=== PATIENT | male | born 1950 | race Caucasian/White ===

== ENCOUNTER 2017-12-03 07:15 | Day surgery (SDC) | payer OTHER ==
[2017-12-03] MEDS ORDERED: LACTATED RINGERS 1,000 ML IV ONE ×2 (07:34→11:22)
[2017-12-03] MEDS ORDERED: ceFAZolin 2 GM/50 ML 2 GM/50 ML BAG IV ONE (08:03)
[2017-12-03] MEDS ORDERED: BUPIVACAINE 0.5% PF 30 ML VIAL INFIL ONE ×3 (08:35→08:58)
[2017-12-03] MEDS ORDERED: PROPOFOL 200 MG/20 ML VIAL IVP ONE (10:00)
[2017-12-03] MEDS ORDERED: LIDOCAINE-MPF 2% 5 ML VIAL IM ONE (10:00)
[2017-12-03] MEDS ORDERED: KETOROLAC 30 MG/ML VIAL IVP ONE (10:00)
--- NOTE | 2017-12-03 10:25 | OPERATIVE REPORT ---
Operative Report - General Procedure Date: 12/03/17 Planned Procedure: RIGHT inguinal herniorrhaphy Pre-Op Diagnosis: RIGHT inguinal hernia Procedure Performed: RIGHT indirect inguinal herniorrhaphy and excision RIGHT cord lipoma Post Op Diagnosis: Indirect RIGHT inguinal herniorrhaphy and RIGHT cord lipoma - Procedure Note Primary Surgeon: Santosh Franco MD Anesthesia Provider: Santosh Fernandes MD Anesthesia Technique: Local (40 mL 1/2% marcaine), MAC IV Fluids (mL): 600 Estimated Blood Loss (mL): 10 Complications: None. - Other Other Information/Narrative: Operative After verbal and written informed consent was obtained detailing the risks of infection, bleeding with all of its risks including transfusion, common bile duct injury, and the patient was brought to the operative suite and placed in the supine position on the operating room table. Monitoring devices were applied along with TEDs and pneumatic compressive stockings. Care was taken to avoid pressure points. Prophylactic antibiotics were given. An adequate level of general endotracheal anesthesia was established by Dr. Santosh Fernandes. The abdomen was then prepped with ChloraPrep and draped in a sterile fashion. A "time in" then confirmed that the patient was identified with 3 identifiers (name, birthdate and medical record number), the history and physical was in the chart, the signed consent confirming the procedure was in the chart, the site was marked, verified and the brennan could be seen, the patient was in the correct position, the aforementioned prophylactic measures were in place or given, we had the correct personel and equipment to complete the procedure and that anesthesia, surgery and nursing were given an opportunity to express any concerns. A 5 cm standard right inguinal incision was made using a 15 blade scalpel. Dissection was then carried down through Elisa's fascia maintaining hemostasis using Bovie electrocautery. Small crossing veins were cauterized again using Bovie electrocautery. Once the external oblique was identified, it was incised in the length of its fibers with a 15 blade scalpel. Metzenbaum scissors were then used to extend the incision in both directions opening up the external oblique down to the external ring. Next, the external oblique was grasped with Kellys on both sides. The cord, cord structures as well as hernia sac were freed up circumferentially at the level of the pubic tubercle and a Whatley drain was placed around it. Next, the hernia sac was identified in the anteromedial portion of the hernia sac was stripped down and grasped with 2 hemostats. Using traction and countertraction as well as some blunt dissection the sac was dissected back to the internal ring. The sac was opened and noted to be a sliding inguinal hernia. The attachment of the fat to the hernia sac was dissected using Bovie electrocautery. This is done in a bloodless manner and the fat was returned back into the abdomen. The sac was thensuture ligated at its base using a 2-0 Vicryl and transected. The stump was cauterized using Bovie electrocautery. A small to moderate sized cord lipoma was noted, dissected back to the internal ring, and transected using Bovie electrocautery. Unfortunately, this bled and had to be suture ligated with a 3-0 Vicryl suture ligature. A large Bard PerFix plug and patch system (Lot #[id number], Reference#[id number], Expiration date 2022-03-24) was then used to complete the hernia repair. The plug was inserted into the internal ring and secured to the ring using simple 2- 0 PDS sutures. The enlay patch was placed and sutured to the pubic tubercle medially, the conjoined tendon superiorly and the shelving edge of Pouparts ligament inferiorly using interrupted 2-0 PDS sutures. The slit and hole in the enlay patch were aligned to allow the cord structures through thus creating a "new" internal ring. Attention was directed throughout the case to preserve the ilioinguinal nerve. This was left above the repair but below the closure of the external oblique. The external oblique was closed using a running 3-0 Vicryl suture thus receating the inguinal canal and external ring. This level, the subcutaneous level, and the subcuticular level were then injected with a total of 40 mL of 0.5% Marcaine. Elisa's fascia was closed using interrupted 4 -0 Monocryl and the skin was approximated using a running 4-0 Monocryl subcuticular stitch. The surgical count of instruments, needles and sponges was reported as correct twice. Mastisol, Steri-Strips and sterile surgical dressings were applied. The patient was then awakened from anesthesia, and having tolerated the procedure well, was transported to the recovery room. No complications were encountered. A "time out" confirmed the operation performed, the fluids given, the estimated blood loss and anesthesia, surgery and nursing were given an opportunity to express any concerns. Dragon disclaimer: This document was created in part using voice recognition technology. Because of the inherent limitations of the system ([employer] D[employer] user manual states that the licensee understands that speech recognition is a statistical process and that recognition errors are inherent in the process), occasional same sounding word substitutions and grammatical errors do occur and persist despite proofreading. Please read this document for context.
[2017-12-03] MEDS ORDERED: ACETAMINOPHEN 1,000 MG/100 ML 100 ML IV ONE (10:27)
[2017-12-03] MEDS: HYDROmorphone 1 MG/ML SYRINGE ONE ×3 (10:38→10:50)
[2017-12-03] MEDS ORDERED: oxyCOD/ACETAMIN 5 MG/325 MG TABLET PO ONE (11:56)
[2017-12-03 12:12] VITALS: BP 141/85
== END 2017-12-03 07:16 | disposition home or self-care (01) ==
LOC: SDS 07:15
PROVIDERS: ATTEND Surgery
PROC: 0VBF0ZZ Excision of Right Spermatic Cord, Open Approach (ICD-10-PCS; 2017-12-03)
PROC: 0YU50JZ Supplement Right Inguinal Region with Synthetic Substitute, Open Approach (ICD-10-PCS; principal; 2017-12-03 08:30)
DX: K40.90 Unilateral inguinal hernia, without obstruction or gangrene, not specified as recurrent (principal); D17.6 Benign lipomatous neoplasm of spermatic cord; G47.30 Sleep apnea, unspecified; I10 Essential (primary) hypertension; I67.1 Cerebral aneurysm, nonruptured
CPT/HCPCS: 49525; 55520; A9270; C1781; J0131; J0690; J1170; J7120

== ENCOUNTER 2017-12-09 10:07 | Outpatient (CLI) | payer OTHER | END 2017-12-09 10:08 | disposition home or self-care (01) | LOC: SC 10:07 | PROVIDERS: ATTEND Nurse Practitioner Family | DX: G47.33 Obstructive sleep apnea (adult) (pediatric) (principal) | CPT/HCPCS: 99212; 99214 ==

== ENCOUNTER 2018-12-09 13:44 | Outpatient (CLI) | payer OTHER | END 2018-12-09 13:45 | disposition home or self-care (01) | LOC: SC 13:44 | PROVIDERS: ATTEND Nurse Practitioner Family | DX: G47.33 Obstructive sleep apnea (adult) (pediatric) (principal); G47.00 Insomnia, unspecified | CPT/HCPCS: 99212; 99214 ==

== ENCOUNTER 2020-03-17 16:08 | Outpatient (CLI) | payer OTHER ==
--- NOTE | 2020-03-17 15:48 | SLEEP CARE CONSULTATION ---
Information from patient questionnaire entered by Fiona Titus. I have reviewed and concur with the information entered by Fiona Titus. This document represents the service I personally performed and the decisions made by me, Maria C Rodrigez, RN, MSN, WR[employer]PER [employer]TER. History of Present Illness Service Date and Time: 03/17/2020 1530 Previous diagnosis: Mild, Obstructive Sleep Apnea-Hypopnea Syndrome AHI: 11.6 (in 2016) Reason for follow up: annual (last seen 2019) Equipment type: CPAP Equipment obtained from: [employer] (getting supplies as needed) Mask style: Nasal Backup mask available: Yes (old mask ) Last cushion change: a month ago Prior sleep studies: Yes Year and Where: 2016 - [facility] Type of Sleep Study: Polysomnography CPAP Compliance Data - Data Reviewed with Patient Average duration of nightly device use: 7.75 Compliance rate %: 100 (180 days) Current pressure setting (cmH2O): 6 Humidity settin Heated hose settin Average residual AHI: 3.2 Average large leak: 0 Subjective Patient concerns: denies: aerophagia, mask discomfort, air blowing in eyes, mask leak noise, condensation in mask/hose, nasal congestion, dry mouth, nose, throat, epistaxis, other Observed to snore while using device: Yes (when supine) Current pressure setting perceived as: comfortable On therapy, patient: reports: sleeping better, awakening more refreshed, being more awake and alert during the day, more rested overall. denies: drowsiness while driving Initial [place] Sleepiness Scale score: 18 (in 2016) Allergies and Home Medications Home medication list reviewed: No (no changes) Review of Systems Review of systems same as previous: Yes Physical Exam Height: 5 ft 8 in Weight: 175 lb (home weight ) Body Mass Index: 26.6 BMI Classification: Overweight Impression and Plan 1. Obstructive Sleep Apnea-Hypopnea Syndrome, mild, with good treatment compliance and good apnea control. On CPAP therapy, the patient has better sleep quality and is more rested overall. Patient is very pleased with benefit of treatment. To reduce snore when sleeping supine, I will change his pressure to autoCPAP 6-8cmH20. He is to contact me if this pressure change does not resolve snore or is uncomfortable. I also discussed how significant weight change can affect his apnea risk and CPAP pressure requirements. I discussed symptoms to report for additional pressure change. Patient's apnea severity and rationale for treatment to reduce apnea, improve sleep quality and reduce cardiovascular and cerebrovascular events was reviewed. * * Change to auto CPAP pressure to 6-8 cmH2O * Notify me if snoring with mask or feeling that the pressure is too much or too little * Attempt to lose some weight * Call this office if any problems using CPAP * Return for follow up in 1 year , or sooner if concerns arise Visit Type: Telehealth Phone (to reduce risk of Covid 19 exposure) Patient Location: Home Location of Provider: Home Patient agrees and consents to this telehealth visit type: Yes Patient agrees to have their insurance billed: Yes Time Spent with Patient (minutes): 9 Provider Statement: I spent 100% of the Telehealth Phone Call with the patient with greater than 50% spent counseling the patient and coordination of care.
== END 2020-03-17 16:09 | disposition home or self-care (01) ==
LOC: SC 16:08
PROVIDERS: ATTEND Nurse Practitioner Family
DX: G47.33 Obstructive sleep apnea (adult) (pediatric) (principal); E66.3 Overweight; Z68.26 Body mass index [BMI] 26.0-26.9, adult

== ENCOUNTER 2021-02-28 11:24 | Outpatient (CLI) | payer MEDICARE, OTHER ==
--- NOTE | 2021-02-28 12:05 | SLEEP CARE CONSULTATION ---
Information from patient questionnaire entered by Fiona Titus. I have reviewed and concur with the information entered by Fiona iTtus. This document represents the service I personally performed and the decisions made by , Grace Cho ARNP. History of Present Illness Service Date and Time: 02/28/2021 1124 Previous diagnosis: Mild, Obstructive Sleep Apnea-Hypopnea Syndrome AHI: 11.6 (in 2015) Reason for follow up: annual (last seen 02/2020) Equipment type: CPAP Equipment obtained from: [employer] (getting supplies as needed) Mask style: Nasal Backup mask available: Yes (old mask) Last cushion change: 3 months or longer Prior sleep studies: Yes Year and Where: 2016 - [facility] Type of Sleep Study: Polysomnography HPI additional information: PEDRO PABLO MAGANA was diagnosed to have mild, AHI 11.6, obstructive sleep apnea- hypopnea syndrome and returned today for CPAP therapy annual follow-up. CPAP Compliance Data - Data Reviewed with Patient Average duration of nightly device use: 8 hr 38 min Compliance rate %: 99.4 (180 days) Current pressure setting (cmH2O): 6-8 Humidity settin Heated hose settin Average residual AHI: 2.4 Average large leak: 1 sec Subjective Patient concerns: reports: mask leak noise, other (snore while using device). denies: aerophagia, mask discomfort, air blowing in eyes, condensation in mas k/hose, nasal congestion, dry mouth, nose, throat, epistaxis Observed to snore while using device: Yes (occasional when on his side) Current pressure setting perceived as: comfortable On therapy, patient: reports: sleeping better, awakening more refreshed, being more awake and alert during the day, more rested overall. denies: drowsiness while driving Initial [place] Sleepiness Scale score: 18 (in 2016) Current [place] Sleepiness Scale score: 8 Allergies and Home Medications Home medication list reviewed: Yes (no new meds) Review of Systems Review of systems same as previous: Yes (no changes) Physical Exam Heart Rate: 51 O2 Saturation: 92 Height: 5 ft 8 in Weight: 181 lb (with boots) Body Mass Index: 27.5 BMI Classification: Overweight Impression and Plan 1. Obstructive Sleep Apnea-Hypopnea Syndrome, mild, with excellent treatment compliance and good apnea control. On CPAP therapy, the patient has better sleep quality and is more rested overall. He states that when he sleeps on his side he he gets leaking around the mask. Mask leaks can be reduced by washing mask daily and changing mask cushions more frequently to improve mask seal and comfort. Additionally, mask leaks predominately from when patient sleeps on their side can be reduced by using a CPAP pillow. He also states that the water chamber latch does not always stay closed and the humidity heating element does not always work. He states the heated hose sometimes is not working too. The patients CPAP is almost 5 years old and of reasonable use. He is having some small things not working on the machine too. Thus, the CPAP will be updated when he is eligible which should be next month. A DWO prescription will be made. Compliance guidelines for new device and follow up discussed. He will follow up here 1 month after obtaining new machine. Patient's apnea severity and rationale for treatment to reduce apnea, improve sleep quality and reduce cardiovascular and cerebrovascular events was reviewed. I also reviewed the benefit of consistent device use of CPAP for hypertension. * Continue autoCPAP pressure at 6-8 cmH2O * Update machine * Notify me if snoring with mask or feeling that the pressure is too much or too little * Attempt to lose weight * Call this office if any problems using CPAP * Return for follow up 1 month after updating machine, or sooner if concerns arise Counseling Topics: Spare mask, Weight loss health impact Visit Type: In Office Time Spent with Patient (minutes): 23 Provider Statement: I spent 100% of the Face to Face Visit with the patient with greater than 50% spent counseling the patient and coordination of care.
== END 2021-02-28 11:25 | disposition home or self-care (01) ==
LOC: SC 11:24
PROVIDERS: ATTEND Nurse Practitioner Family
DX: G47.33 Obstructive sleep apnea (adult) (pediatric) (principal); E66.3 Overweight; Z68.27 Body mass index [BMI] 27.0-27.9, adult
CPT/HCPCS: 99213; G0463; 99212

== ENCOUNTER 2021-06-29 08:09 | Day surgery (SDC) | payer MEDICARE, OTHER ==
[~2021-06-29 08:09] MED LIST: BRIMONIDINE 0.2% OPHTH DROPS 5 ML ONE; CYCLOPENTOLATE 1% OPHTH DROPS 2 ML ONE; EPINEPHrine 1 MG/ML AMP ONE; KETOROLAC 0.45% OPHTH DROPS ONE; PHENYLEPHRINE 2.5% OPHTH 2 ML DROPS ONE; PROPARACAINE 0.5% OPHTH DROPS 15 ML ONE; TIMOLOL 0.5% OPHTH DROPS ONE; TRIAMCIN/MOXIFLOX OPHTHALMIC 0.6 ML VIAL IO ONE; VANCOMYCIN OPHTHALMI 8MG/0.8ML 8 MG/0.8 ML SYRINGE IO ONE
[2021-06-29] MEDS ORDERED: LACTATED RINGERS 1,000 ML IV ONE ×2 (08:37→09:30)
--- NOTE | 2021-06-29 08:42 | ANESTHESIA ---
Pre-Anesthesia VS, & Labs - Diagnosis left eye cataract - Procedure left eye CATIOL Vital Signs: Temp Pulse Resp BP Pulse Ox 36.8 C 64 19 139/97 H 100 06/29/21 08:21 06/29/21 08:21 06/29/21 08:21 06/29/21 08:21 06/29/21 08:21 Height: 5 ft 8 in Weight (kg): 83.1 kg Body Mass Index: 27.8 BMI Classification: Overweight - NPO >8 hours - Lab Results Lab results reviewed: Yes Home Medications and Allergies Home Medications: Ambulatory Orders Losartan Potassium 25 mg PO 06/28/21 Acetaminophen [Tylenol] 650 mg PO Q6H PRN 11/18/17 Losartan Potassium 25 mg PO 06/28/21 Allergies/Adverse Reactions: Allergies Allergy/AdvReac Type Severity Reaction Status Date / Time No Known Drug Allergies Allergy Verified 12/02/17 10:52 Anes History & Medical History - Anesthetic History Anesthesia Complications: reports: No previous complications Family history of Anesthesia Complications: Denies Family history of Malignant Hyperthermia: Denies - Medical History Cardiovascular: reports: Hypertension, Other Pulmonary: reports: Sleep apnea, CPAP use Gastrointestinal: reports: Hemorrhoids Urinary: reports: None Musculoskeletal: reports: None Endocrine/Autoimmune: reports: None Skin: reports: None Smoking Status: Never smoker - Surgical History General: reports: Other Orthopedic: reports: Shoulder arthroplasty Exam General: Alert, Oriented x3, Cooperative, No acute distress Dental: WNL Mouth Openin Fingerbreadth Neck Mobility: Normal Mallampati classification: II Respiratory: Lungs clear, Normal breath sounds, No respiratory distress, No accessory muscle use Cardiovascular: Regular rate, Normal S1, Normal S2, No murmurs Plan Anesthesia Type: MAC Consent for Procedure(s) Verified and Reviewed: Yes Code Status: Attempt Resuscitation ASA classification: 2-Mild systemic disease Is this case an emergency?: No
[2021-06-29] MEDS ORDERED: MIDAZOLAM 2 MG/2 ML VIAL ONE ×2 (08:56→09:17)
[2021-06-29] MEDS ORDERED: CHONDR SULF/HYALURONATE SYRINGE IO ONE (09:12)
[2021-06-29] MEDS ORDERED: TIMOLOL 0.5% OPHTH DROPS OPTH ONE (09:12)
[2021-06-29] MEDS ORDERED: BSS/LIDOCAINE/EPINEPHRINE 1 ML SYRINGE IO ONE (09:12)
[2021-06-29] MEDS ORDERED: EPINEPHrine 1 MG/ML AMP IR ONE (09:12)
[2021-06-29] MEDS ORDERED: BRIMONIDINE 0.2% OPHTH DROPS 5 ML OPTH ONE (09:12)
[2021-06-29] MEDS ORDERED: VANCOMYCIN OPHTHALMI 8MG/0.8ML 8 MG/0.8 ML SYRINGE IO ONE (09:13)
[2021-06-29] MEDS ORDERED: TRIAMCIN/MOXIFLOX OPHTHALMIC 0.6 ML VIAL IO ONE (09:13)
[2021-06-29] MEDS ORDERED: PROPARACAINE 0.5% OPHTH DROPS 15 ML EACHEYE ONE (09:13)
[2021-06-29] MEDS ORDERED: SEVOFLURANE 250 ML LIQUID INH ONE (09:16)
[2021-06-29 09:52] VITALS: BP 128/88
--- NOTE | 2021-06-29 10:02 | ANESTHESIA POST OP EVALUATION ---
Anesthesia Post Eval - Post Anesthesia Eval Vitals: Last Vital Signs Temp 36.5 C 06/29/21 09:51 Pulse 65 06/29/21 09:51 Resp 16 06/29/21 09:51 BP 128/88 H 06/29/21 09:51 Pulse Ox 99 06/29/21 09:51 CV Function Including HR & BP: Stable Pain Control: Satisfactory Nausea & Vomiting: Negative Mental Status: Baseline Respiratory Status: Airway Patent Hydration Status: Satisfactory Anesthesia Complications: None
--- NOTE | 2021-06-29 10:03 | OPERATIVE REPORT ---
Operative Report - Other Other Information/Narrative: Date of Surgery: 06/29/21 Preop Dx: Visually significant cataract left eye. This was the first cataract surgery. Postop Dx: Same Procedure: Phacoemulsification with posterior chamber intraocular lens implant left eye Surgeon: Dr. Siddhartha Balderrama Anesthesia: Monitored anesthesia care Complications: None Operative Indications: This is a 70-year-old M with progressive vision loss in the left eye due to 2+ nuclear sclerotic, and 3+ cortical cataract. Best corrected visual acuity was 20/20 with glare to 20/50 vision in the left eye. Indications for surgery were: - Overall decrease in vision - Difficulty reading - Difficulty seeing words, closed captions, or game scores on TV - Difficulty seeing street signs - DIfficulty driving in low light or at night - Difficulty driving at night because of headlights from other vehicles - Difficulty with glare or bright lights in any situation The patient was consented at length concerning the risks and benefits of cataract surgery after which the patient expressed a desire to proceed with surgery. Operative Procedure: The patient was taken into OR#3 and placed under monitored anesthesia care. A surgical time-out was conducted confirming correct patient, correct procedure, and correct surgical site. The patient was given topical anesthesia and then prepped and draped in the usual sterile fashion. The eye was entered at the 6 and 3 oclock positions. Intracameral Shugarcaine was injected into the anterior chamber followed by a dispersive viscoelastic. A continuous-tear curvilinear capsulorhexis was performed. The nucleus was hydrodissected and phacoemulsified. The cortex was evacuated using automated infusion and aspiration. A cohesive viscoelastic was injected into the capsular bag and a 22.5 diopter intraocular lens was inserted into the bag. Infusion and aspiration were used to evacuate the viscoelastic materials from the eye. The wounds were hydrated and the eye inflated to physiologic pressure using balanced salt solution. Approximately 0.25ml of a mixture of triamcinolone and moxifloxacin was injected trans-sclerally into the vitreous in the inferotemporal quadrant using a 30 gauge cannula. An additional 0.55ml of a mixture of triamcinolone, moxifloxacin, and vancomycin was injected subconjunctivally in the superior quadrant for infection and inflammation prophylaxis. Wound integrity was checked with Weck-Samara sponges. The patient was taken from the operating room in good condition and given post-op instructions.
== END 2021-06-29 08:10 | disposition home or self-care (01) ==
LOC: SDS 08:09
PROVIDERS: ATTEND Ophthalmology
DX: H25.812 Combined forms of age-related cataract, left eye (principal); G47.33 Obstructive sleep apnea (adult) (pediatric)
CPT/HCPCS: 66984; A9270; J3490; J7120

== ENCOUNTER 2021-08-29 10:51 | Outpatient (CLI) | payer MEDICARE, OTHER | END 2021-08-29 10:52 | disposition home or self-care (01) | LOC: DI 10:51 | PROVIDERS: ATTEND Registered Nurse | DX: I34.8 Other nonrheumatic mitral valve disorders (principal); I70.0 Atherosclerosis of aorta | CPT/HCPCS: 93306 ==

== ENCOUNTER 2021-09-19 08:53 | Outpatient (CLI) | payer MEDICARE, OTHER ==
--- NOTE | 2021-09-19 09:31 | XRAY Report ---
PROCEDURE: Knee 3 View BILAT INDICATIONS: PAIN IN RT LT KNEE TECHNIQUE: 3 views of the left and right knee(s) were acquired. COMPARISON: None. FINDINGS: On the right, scattered degenerative spurring and sclerosis.Severe chondrocalcinosis present. There i s mild medial joint space narrowing. Small joint effusion. There is anterior soft tissue swelling. On the left, scattered degenerative spurring and sclerosis. Chondrocalcinosis is present. There is mi ld medial joint space narrowing. Trace left knee effusion. IMPRESSION: Severe bilateral knee chondrocalcinosis Bilateral mild knee joint degeneration Small bilateral knee joint effusions, right greater than left. Mild anterior right knee soft tissue swelling. Reviewed by: Andreas Angelo MD on 09/19/2021 9:30 AM PST Approved by: Andreas Angelo MD on 09/19/2021 9:30 AM PST Station ID: [id number]
== END 2021-09-19 08:54 | disposition home or self-care (01) ==
LOC: DI 08:53
PROVIDERS: ATTEND Registered Nurse
DX: M17.0 Bilateral primary osteoarthritis of knee (principal); M11.262 Other chondrocalcinosis, left knee; M11.261 Other chondrocalcinosis, right knee; M25.462 Effusion, left knee; M25.461 Effusion, right knee

== ENCOUNTER 2024-05-21 11:27 | Emergency (ER) | payer MEDICARE, OTHER ==
[2024-05-21] MEDS: PROPARACAINE 0.5% OPHTH DROPS 15 ML EACHEYE STA (11:52)
[2024-05-21 11:53] VITALS: BP 176/87; O2SAT 99
[2024-05-21] MEDS: ERYTHROMYCIN OPHTH OINT 1 GM TUBE RIGHTEYE STA (12:17)
[2024-05-21] MEDS: IBUPROFEN 800 MG TABLET PO STA (12:47)
[2024-05-21] MEDS: ACETAMINOPHEN 500 MG TABLET PO STA (12:47)
--- NOTE | 2024-05-21 12:47 | ED Physician Documentation ---
PD HPI OPHTHO - Stated complaint Stated Complaint: RT EYE PX - Chief complaint Chief Complaint: Heent - Additional information Additional information: 73-year-old male with history of hypertension, sleep apnea with CPAP use, chronic hearing loss presents to the emergency department for right eye irritation. Patient says that he tends to wake up with a lot of eye gunk because of his chronic oily skin. He said today while he was working on his computer he started to experience eye watering and irritation he attempted to rub his right eye and as he did so he started to experience severe pain and tenderness with burning. He did rinse his eye out in the sink at home with little to no relief and presents emergency department for further evaluation. 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 Balderrama he has an appointment with him tomorrow for LASEK eye surgery. He does not wear contacts. PD PAST MEDICAL HISTORY - Past Medical History Past Medical History: Yes Cardiovascular: Hypertension, Other Respiratory: Sleep apnea, CPAP use Endocrine/Autoimmune: None GI: Hemorrhoids : None HEENT: Chronic hearing loss Psych: ADD/ADHD Musculoskeletal: None Derm: None - Past Surgical History Past Surgical History: Yes General: Other Ortho: Shoulder arthroplasty - Present Medications Home Medications: Ambulatory Orders Medication Instructions Recorded Confirmed Acetaminophen [Tylenol] 650 mg PO Q6H PRN 11/18/17 05/21/24 Losartan Potassium 25 mg PO DAILY 06/28/21 05/21/24 Erythromycin Base [Erythromycin 1 applic OP Q3HR #3.5 gm 05/21/24 Ophthalmic Ointment] Levothyroxine [Synthroid] 25 mcg PO QDAC 05/21/24 05/21/24 - Allergies Allergies/Adverse Reactions: Allergies Allergy/AdvReac Type Severity Reaction Status Date / Time No Known Drug Allergies Allergy Verified 05/21/24 11:35 - Social History Does the pt smoke?: No Smoking Status: Never smoker Does the pt drink ETOH?: No Does the pt have substance abuse?: No - Immunizations Immunizations are current?: Yes - POLST Patient has POLST: No PD ED PE NORMAL - Vitals Vital signs reviewed: Yes - General General: Alert and oriented X 3, No acute distress, Well developed/nourished PD ED PE EXPANDED - Eyes Eyes: PERRL, Right eye, Normal eyelids, No eyelid FB (everted), Injected conj/sclera, Corneal abrasion, Fluorescein uptake (Right eye IOP: 15). No: Eyelid injury, Eyelid swelling, Eyelid erythema, Exudate Results - Vitals Vitals: Vital Signs - 24 hr 05/21/24 11:32 Temperature 36.5 C Heart Rate 74 Respiratory 20 Rate Blood Pressure 176/87 H O2 Saturation 99 Oxygen O2 Source Room air PD Medical Decision Making - ED course ED course: The Pt presents with right eye irritation likely due to a corneal abrasion seen on fluorescein staining of eye. The Pt is otherwise well-appearing without evidence of retained foreign body, corneal ulcer, globe rupture, or superimposed infection. Prescribed antibiotics and instructed the Pt to follow up closely with ophthalmology and avoid wearing contacts. Ironically patient has an appoint with Dr. Balderrama, ophthalmology tomorrow patient was told to inform Dr. Balderrama of today's ER visit. Return precautions given all questions answered patient safe for discharge. Departure - Departure Disposition: 01 Home, Self Care Clinical Impression: Corneal abrasion Instructions: ED Eye Injury Corneal Abrasion Prescriptions: Erythromycin Base [Erythromycin Ophthalmic Ointment] 1 applic OP Q3HR #3.5 gm Comments: Thank you for trusting us with your care. It does appear that you have a corneal abrasion to your right eye. We have given you erythromycin ointment to your right eye today and have sent a prescription over to [facility] for you to pickling grader the computer in your right eye every 3-4 hours take Tylenol ibuprofen for pain and apply ice to your right eye it should start to heal Over the next couple days. Please follow-up with Dr. Balderrama tomorrow. Forms: PCP List Discharge Date/Time: 05/21/24 12:53
== END 2024-05-21 12:53 | disposition home or self-care (01) ==
LOC: ED 11:27
DX: S05.01XA Injury of conjunctiva and corneal abrasion without foreign body, right eye, initial encounter (principal); I10 Essential (primary) hypertension; G47.30 Sleep apnea, unspecified
CPT/HCPCS: 99283; 99284; A9270; J3490

== ENCOUNTER 2024-07-10 12:29 | Outpatient (CLI) | payer MEDICARE, OTHER ==
--- NOTE | 2024-07-10 13:19 | Sleep Patient Instructions ---
Sleep Center Visit Summary - Patient Visit Information Reason for Visit: Initial consultation - Patient Instructions Additional Instructions: You will continue with CPAP therapy with pressure set at 6-8 cmH2O. A supply prescription will be updated with your DME supplier. Please follow up with the sleep care office in 1 year. - Clinic Information Contact: [facility] [address] [place] [address] [email or web address] T: [phone]
--- NOTE | 2024-07-10 13:24 | SLEEP CARE CONSULTATION ---
Information from patient questionnaire entered by Arabella Fam. I have reviewed and concur with the information entered by Arabella Fam. This document represents the service I personally performed and the decisions made by me, Grace Cho ARNP. History of Present Illness Service Date and Time: 07/10/2024 1229 Reason for Visit: New patient, sleep apnea on CPAP therapy, Re-establish care Usual bedtime: 2200 Time it takes to fall asleep: 30SEC Snores at night: No Observed to quit breathing while asleep: No Number of times waking at night: 1-2 Reasons for waking at night: reports: Bathroom Toss, Turn, or Twitch while sleeping: No Recalls having dreams: Yes Usually gets out of bed at: 06-0700 Feels refreshed in the morning: No (not for whole life) Morning headache: No Sleepy or fatigued during the day: Yes Ever fallen asleep while driving: No Takes day naps: No Prior sleep studies: Yes Year and Where: 2015 - [facility] Type of Sleep Study: Polysomnography Additional HPI information: PEDRO PABLO MAGANA was previously diagnosed to have mild, AHI 11.6, obstructive sleep apnea-hypopnea syndrome as seen in sleep study done at [facility] 02/21/2016 and comes in today to re-establish care for CPAP therapy. He was last seen in our office in 2020. - Parasomnia Symptoms Ever been unable to move upon waking from sleep: No Walks in sleep: No Talks in sleep: No Ever acted out dreams in sleep: No Ever felt weak in the knees when startled or emotional: No Bothered by creepy, crawly, restless sensations in legs: No Problems with memory or concentration: Yes CPAP Compliance Data - Data Reviewed with Patient Average duration of nightly device use: 6 hours 58 minutes Compliance rate %: 99 (89/90 days used) Current pressure setting (cmH2O): 6-8 Average residual AHI: 0.3 Central apnea: 0.1 Obstructive apnea: 0.1 Hypopnea: 0.1 Average large leak: 0 L/min Compliance data discussion: He has an Airsense 10. He is using [employer] for his supplies. He is using a nasal cushion mask, Dreamwear, medium cushion. He does keep a backup old mask if needed. Subjective Patient concerns: denies: aerophagia, mask discomfort, air blowing in eyes, mask leak noise, condensation in mask/hose, nasal congestion, dry mouth, nose, throat, epistaxis Observed to snore while using device: No Current pressure setting perceived as: comfortable On therapy, patient: reports: sleeping better, awakening more refreshed. denies: drowsiness while driving Initial Leburn Sleepiness Scale score: 18 (in 2016) Current Leburn Sleepiness Scale score: 8 (07/10/24) Past Medical History Past Medical History: reports: Hypertension, Hypothyroidism, Attention deficit Social History The patient's occupation is a RETIRED. Patient is and lives in [place]. Have you smoked in the past 12 months: No Alcohol use: No Caffeine use: Yes Caffeine amount and frequency: 1 CUP OF TEA QD - he has since stopped his tea Family History Family history of sleep disordered breathing: No Allergies and Home Medications Known drug allergies: No Drug allergies reviewed: Yes Home medication list reviewed: Yes (as listed) Allergy and home medication list: Allergies No Known Drug Allergies Allergy (Verified 07/10/24 12:48) Home Medications Medication Instructions Recorded Confirmed Last Taken Type Acetaminophen [Tylenol] 650 mg PO Q6H PRN 11/18/17 07/10/24 06/28/21 History Losartan Potassium 25 mg PO DAILY 06/28/21 07/10/24 06/28/21 History Levothyroxine [Synthroid] 25 mcg PO QDAC 05/21/24 07/10/24 Unknown History Ibuprofen See Rx Instructions .ROUTE .COMPLEX 07/10/24 07/10/24 Unknown History diphenhydrAMINE [Benadryl] See Rx Instructions .ROUTE .COMPLEX 07/10/24 07/10/24 Unknown History Review of Systems Cardiovascular: reports: high blood pressure Gastrointestinal: denies: heartburn Neurological: denies: headaches Psychiatric: reports: Attention Deficit Hyperactivity Ear/Nose/Throat: reports: nasal congestion, wisdom teeth removed. denies: tonsillectomy Endocrine: reports: thyroid disease, sluggishness Musculoskeletal: reports: joint pain Physical Exam Vital signs obtained and entered by: ARABELLA Santizo MA Blood Pressure: 119/78 (RIGHT ARM) Cuff size: regular Heart Rate: 65 O2 Saturation: 96 Height: 5 ft 7 in Weight: 178 lb Body Mass Index: 27.8 BMI Classification: Overweight Neck circumference: 15.5 Heart: regular rate and rhythm Lungs: clear bilaterally Impression and Plan 1. Obstructive Sleep Apnea-Hypopnea Syndrome, mild, with good treatment compliance and good apnea control. On CPAP therapy, the patient has better sleep quality and is more rested overall. He says he had a CPAP that was replaced by [employer]. When he found about the recall he contacted [facility] and they got him set up with a [employer] Airsense 10. He has since got a replacement device from [employer] because he sent the recalled device to them. He continues to use his Airsense 10. Patient has significant improvement of their sleep apnea and is satisfied with current CPAP therapy. Patient denies problems with oral dryness, nasal congestion, epistaxis, skin irritation or aerophagia. Patient's apnea severity and rationale for treatment to reduce apnea, improve sleep quality and reduce cardiovascular and cerebrovascular events was reviewed. I also reviewed the benefit of consistent device use of CPAP for hypertension, attention deficit. 2. Overweight, unspecified. Currently patients BMI is 27.8. His weight is stable at current level. Obesity increases the risk of apnea, CPAP pressure requirements and overall health risks especially cardiovascular and diabetes. Thus patient is advised to lose weight. * Continue auto CPAP pressure at 6-8 cmH2O * Update supply prescription * Notify me if snoring with mask or feeling that the pressure is too much or too little * Attempt to lose weight * Call this office if any problems using CPAP * Return for follow up in 12 months, or sooner if concerns arise Continue with device pressure at (cmH2O): 6-8 Counseling Topics: Spare mask, Weight loss health impact Prescriptions: Device supplies Follow up with Sleep Care in: 1 year Visit Type: In Office Time Spent with Patient (minutes): 30 Provider Statement: I spent 100% of the Face to Face Visit with the patient with greater than 50% spent counseling the patient and coordination of care.
[2024-07-10 13:35] VITALS: BP 119/78; O2SAT 96
== END 2024-07-10 12:30 | disposition home or self-care (01) ==
LOC: SC 12:29
PROVIDERS: ATTEND Nurse Practitioner Family
DX: G47.33 Obstructive sleep apnea (adult) (pediatric) (principal); E66.3 Overweight; Z68.27 Body mass index [BMI] 27.0-27.9, adult
CPT/HCPCS: 99203; G0463; 99212

== ENCOUNTER 2024-07-14 14:34 | Outpatient (CLI) | payer MEDICARE, OTHER | END 2024-07-14 14:35 | disposition home or self-care (01) | LOC: DI 14:34 | PROVIDERS: ATTEND Registered Nurse | DX: I08.0 Rheumatic disorders of both mitral and aortic valves (principal) | CPT/HCPCS: 93307 ==